=== PATIENT | male | born 1950 | race Caucasian/White ===

== ENCOUNTER 2020-06-18 09:58 | Outpatient (REF) | payer MEDICARE, SELFPAY ==
--- NOTE | ~2020-06-18 | US_ITS ---
EXAMINATION: US RETROPERITONEAL LIMITED (RENAL ONLY) CLINICAL INFORMATION: Left renal cancer. COMPARISON: Renal ultrasound 06/13/2019 TECHNIQUE: Real-time imaging of the kidneys. FINDINGS: RIGHT KIDNEY: 10.0 x 5.9 x 4.9 cm (SAG x AP x TRV). The kidney is normal in size, contour, and echogenicity. Renal cortical thickness is normal. No hydronephrosis. Right upper pole simple cyst measures 1.3 cm. Midpole simple cyst measures 1.4 cm. There is a calculus seen at the midpole measuring 0.3 cm. LEFT KIDNEY: 9.3 x 4.3 x 4.2 cm (SAG x AP x TRV). The kidney is normal in size, contour, and echogenicity. Renal cortical thickness is normal. No renal calculi or hydronephrosis. There is a mid to lower pole simple cyst measuring 1.6 cm. There are 2 additional lower pole cysts measuring 1.4 cm and 1.2 cm. Partial nephrectomy at the lower pole. No suspicious mass identified. US/US renal BI IMPRESSION: No suspicious renal mass. Partial left nephrectomy. Bilateral renal cysts. Nonobstructing 0.3 cm right renal calculus..
[2020-06-18 12:10] LABS: Prostate Specific Antigen 1.59 ng/mL (<0.05-4.0)
== END 2020-06-18 09:59 | disposition home or self-care (01) ==
LOC: HO.US 09:58
PROVIDERS: PCP Internal Medicine; Visit Provider Urology
DX: Z12.5 Encounter for screening for malignant neoplasm of prostate (principal); C64.2 Malignant neoplasm of left kidney, except renal pelvis
CPT/HCPCS: 36415; 76775; 84153

== ENCOUNTER → 2020-06-29 08:55 | Outpatient (BNVA) | payer MEDICARE, SELFPAY | PROVIDERS: PCP Internal Medicine; Visit Provider Urology | DX: Z13.89 Encounter for screening for other disorder (principal) | CPT/HCPCS: Q3014 ==

== ENCOUNTER 2022-10-03 11:06 | Outpatient (AMB) | payer MEDICARE, SELFPAY ==
--- NOTE | 2022-10-03 11:12 | A.OFFVIS_ITS ---
Intake Intake Visit Reasons: Frequency/Urgency Intake Note: * NEW Patient presents today to established treatment for Frequency/Urgency * Meds- Tamsulosin * Allergies to Antibiotic- None * Blood Thinner- None * PVR- 67ml Cook Roast Required: No Accompanied by: Self / Same As Patient Allergies No Known Allergies Allergy (Verified 11/28/22 14:47) Medication List - Last Reconciled 10/03/22 by Natalia Martínez MD lisinopril 20 mg PO DAILY omeprazole 20 mg PO DAILY tadalafil 5 mg PO DAILY tamsulosin 0.4 mg PO DAILY 90 days tolterodine ER 4 mg PO DAILY tramadol 50 mg PO Q6H PRN trazodone mg PO HPI HPI Comments History of Present Illness Details Jf is a 72-year-old male who presents to the office as a new patient evaluation for LUTS of frequency and urgency. He as seen by his PCP on July 25 2022 with complaints of LUTS of frequency and urgency. He was sent for culture and was started on antibiotics. He was also prescribed Flomax 0.4 mg and Cialis 5 mg. 10/03/22-- In review of his chart he has a recent US done on 06/18/20 which is consistent with partial left nephrectomy and a right kidney 3 mm stone, no masses visualized. The patient states that urine culture reports came out negative for infection States that his urinary frequency during the day time is up to 10 times. Mentions that the urinary symptoms got worse after taking Flomax and Cialis. States night time voiding episodes improved from 2-3 times per night to once a night with the medications. Has history of partial nephrectomy in 2011 for renal cancer. The patient has surgical history of ankle fusion in right leg, knee replacement of left leg, carpal tunnel surgery in both hands and shoulders. Evaluation today-- Blood: negative, leukocytes: negative. Bladder scan PVR: 67 mL. AUA symptom score: 15. Prostate exam-- enlarged and no suspicious bladder lesion palpated. PSA results reviewed--06/18/20?1.59. I discussed that bladder wall can get thicken with age which can sometimes cause symptoms of urgency or bladder spasms. Plan: PSA blood work was ordered. Cystoscopy discussed to be scheduled. Renal US was ordered. Tolterodine 4 mg QD was ordered. Follow-up after 6 weeks. [facility] Medical History Asthma BPH w/o urinary obs/LUTS Erectile dysfunction GERD (gastroesophageal reflux disease) Hypertension Osteoarthritis Renal cancer Surgical History History of kidney surgery Family History (Updated 11/28/22 @ 14:47 by LORRAINE Hardin) Father No problems noted. Mother No problems noted. Social History (Updated 11/28/22 @ 14:47 by LORRAINE Hardin) Alcohol intake: current Alcohol intake frequency: does not drink Patient Tobacco Use Status: Never used Tobacco Questionnaire AUA Symptom Score AUA Incomplete emptying - It does not feel like I empty my bladder all the way.: 3 - About half the time Frequency - I have to go again less than two hours after I finish urinating.: 4 - More than half the time Intermittency - I stop and start again several times when I urinate.: 0 - Not at all Urgency - It is hard to wait when I have to urinate.: 3 - About half the time Weak stream - I have a weak urinary stream.: 4 - More than half the time Straining - I have to push or strain to begin urination.: 0 - Not at all Nocturia - I get up to urinate after I go to bed until the time I get up in the morning.: 1 time AUA Symptom Score: 15 Quality of life due to urinary symptoms: If you were to spend the rest of your life with your urinary condition the way it is now, how would you feel about that?: Unhappy Source: Christopher TIERNEY, Giovani GRIDER Jr, O'Shama MP, et al, and the Measurement Committee of the [place] [employer]. The [place] [employer] symptom index for benign prostatic hyperplasia. J Urol. 1992; 148: 1374-5342. Copyright 1992 [place] [employer] Review of Systems Const All systems reviewed & are unremarkable except as noted in HPI and below Reports no additional complaints Eyes Reports no additional complaints ENT Reports no additional complaints Card Denies dyspnea Resp Denies cough and Denies dyspnea GI Reports no additional complaints Musc Reports no additional complaints Skin/Breast Denies rash and Denies unusual bruising Neuro Reports no additional complaints Psych Reports no additional complaints Endo Reports no additional complaints Pérez/Lymph Reports no additional complaints Aller/Immun Reports no additional complaints Physical Exam Const General: healthy appearing, no acute distress and well developed Orientation/consciousness: patient oriented x3 HEENT Head: Yes normocephalic and Yes atraumatic Eyes Conjunctivae: conjunctivae normal Neck Neck: Yes normal visual inspection Chest Chest palpation & inspection: normal inspection of the chest Resp Effort & Inspection: normal respiratory effort Cardio Rate: regular rate GI Inspection: Yes normal to inspection Palpation (GI): Soft to palpation Other: Prostate Exam: Prostate exam-- enlarged and no suspicious bladder lesion palpated. Penis: normal penis Scrotum: scrotum normal Skin General skin exam: no rashes or lesions noted Neuro General: patient oriented x3 Extrem General: No pedal edema Psych Appearance: grossly normal Affect: normal affect Office Procedures Post Void Residual Post Residual Void Post Void Residual (PVR): [id number] Void Residual by ultrasound Results AMB Urinalysis, Automated UA Leukoctes 0 Royer/uL Last Edit by LORRAINE Hardin on 10/03/22 11:42 UA Nitrite Negative Last Edit by LORRAINE Hardin on 10/03/22 11:42 UA Urobilinogen 0.2 mg/dL Last Edit by LORRAINE Hardin on 10/03/22 11:4 2 UA Protein 100 mg/dL Last Edit by LORRAINE Hardin on 10/03/22 11:42 2+ Adeline Winters 10/03/22 11:42 UA pH 6.0 Last Edit by LORRAINE Hardin on 10/03/22 11:42 UA Blood 0 Duncan/uL Last Edit by LORRAINE Hardin on 10/03/22 11:42 UA Specific [place] 1.025 Last Edit by LORRAINE Hardin on 10/03/22 11: 42 UA Ketone Negative Last Edit by LORRAINE Hardin on 10/03/22 11:42 UA Bilirubin 1 mg/dL Last Edit by LORRAINE Hardin on 10/03/22 11:42 1+ Adeline Winters 10/03/22 11:42 UA Glucose 0 mg/dL Last Edit by LORRAINE Hardin on 10/03/22 11:42 Results Reviewed Results Reviewed: Laboratory Last Values Urine pH (Auto) 6.0 10/03/22 11:12 Specific [place] (Auto) 1.025 10/03/22 11:12 Urine Protein (Auto) 100 mg/dL 10/03/22 11:12 Glucose (UA)(Auto) 0 mg/dL 10/03/22 11:12 Urine Ketones (Auto) Negative 10/03/22 11:12 Urine Blood (Auto) 0 Duncan/uL 10/03/22 11:12 Urine Nitrite (Auto) Negative 10/03/22 11:12 Urine Bilirubin (Auto) 1 mg/dL 10/03/22 11:12 Urine Urobilinogen (Auto) 0.2 mg/dL 10/03/22 11:12 Leukocyte Esterase (Auto) 0 Royer/uL 10/03/22 11:12 Date of Service: 06/18/20 EXAMINATION: US RETROPERITONEAL LIMITED (RENAL ONLY) CLINICAL INFORMATION: Left renal cancer. COMPARISON: Renal ultrasound 06/13/2019 TECHNIQUE: Real-time imaging of the kidneys.? FINDINGS: RIGHT KIDNEY: 10.0 x 5.9 x 4.9 cm (SAG x AP x TRV). The kidney is normal in size, contour, and echogenicity. Renal cortical thickness is normal. No hydronephrosis. Right upper pole simple cyst measures 1.3 cm. Midpole simple cyst measures 1.4 cm. There is a calculus seen at the midpole measuring 0.3 cm. LEFT KIDNEY: 9.3 x 4.3 x 4.2 cm (SAG x AP x TRV). The kidney is normal in size, contour, and echogenicity. Renal cortical thickness is normal. No renal calculi or hydronephrosis. There is a mid to lower pole simple cyst measuring 1.6 cm. There are 2 additional lower pole cysts measuring 1.4 cm and 1.2 cm. Partial nephrectomy at the lower pole. No suspicious mass identified. IMPRESSION: No suspicious renal mass. Partial left nephrectomy. Bilateral renal cysts. Nonobstructing 0.3 cm right renal calculus.. Assessment & Plan Assessment & Plan (1) Erectile dysfunction: Code(s): N52.9 - Male erectile dysfunction, unspecified (2) History of kidney cancer: Code(s): Z85.528 - Personal history of other malignant neoplasm of kidney (3) BPH (benign prostatic hyperplasia): Code(s): N40.0 - Benign prostatic hyperplasia without lower urinary tract symptoms (4) Urine frequency: Code(s): R35.0 - Frequency of micturition Plan PSA blood work was ordered. Cystoscopy discussed to be scheduled. Renal US was ordered. Tolterodine 4 mg QD was ordered. Follow-up after 6 weeks. Orders: Orders AMB Urinalysis Automated 10/03/22 Z13.9 - Encounter for screening, unspecified AMB Post Void Residual by ultrasound 10/03/22 N39.8 - Other specified disorders of urinary system Medications: New 2 tolterodine ER 4 mg PO DAILY 30 caps 1RF Patient Instructions: The patient had an opportunity to ask questions regarding treatment plan. All questions were answered. Imaging, Laboratory studies and physical exam results were discussed and reviewed in detail. No major barriers to understanding were identified. The patient expressed understanding and agreement with the above treatment plan. The patient is aware they should contact our office by phone for worsening of their current condition or the appearance of new symptoms. Compliance is encouraged with any medications and followup testing that is ordered. It is a privilege to be allowed the opportunity to participate in the urologic care of your patient. If you have any questions or concerns regarding treatment for the above conditions please do not hesitate to contact me. The office telephone contact is [phone]. This note is constructed in part using voice recognition software. While every effort has been made to ensure accuracy station engineer chief errors may have been included. Yours sincerely, Natalia Martínez MD Quality Reporting (2019) Benign Prostatic Hyperplasia ([facility] 771) AUA symptom score: 15 Quality of life due to urinary symptoms: If you were to spend the rest of your life with your urinary condition the way it is now, how would you feel about that?: Unhappy Coding Level of Care Code New Pt Level 3 (48041) Diagnoses Erectile dysfunction N52.9 History of kidney cancer Z85.528 BPH (benign prostatic hyperplasia) N40.0 Urine frequency R35.0 CPT Codes Post Residual Void - PVR CPT Code: 65051-Xtww Void Residual by ultrasound ([id number])
== END 2022-10-03 11:58 | disposition home or self-care (01) ==
LOC: HO.HUSH 11:06
PROVIDERS: PCP Internal Medicine; Visit Provider Urology
DX: N52.9 Male erectile dysfunction, unspecified (principal); Z85.528 Personal history of other malignant neoplasm of kidney; N40.0 Benign prostatic hyperplasia without lower urinary tract symptoms; R35.0 Frequency of micturition
CPT/HCPCS: 99203

== ENCOUNTER → 2022-10-03 11:06 | Outpatient (BNVA) | payer MEDICARE, SELFPAY | PROVIDERS: PCP Internal Medicine; Visit Provider Urology | DX: N40.1 Benign prostatic hyperplasia with lower urinary tract symptoms (principal); N52.9 Male erectile dysfunction, unspecified; R35.0 Frequency of micturition; Z85.528 Personal history of other malignant neoplasm of kidney | CPT/HCPCS: 51798; 99202 ==

== ENCOUNTER 2022-11-28 14:42 | Outpatient (AMB) | payer MEDICARE, SELFPAY ==
--- NOTE | 2022-11-28 12:05 | A.OFFVIS_ITS ---
Intake Intake Visit Reasons: New patient/Possible cysto Intake Note: Patient presents today for a CYSTOSCOPY Procedure: Meds: Tamsulosin, Tadalafil & Tolterodine Allergies to Antibiotic: No Known Allergies Blood Thinner: None Urinalysis test clear for Cysto? Disposible Uro-G Cystoscope Cannula: Lot: [id number] Exp: 08/15/2024 Data Deliverables Manager Required: No Accompanied by: Self / Same As Patient Allergies No Known Allergies Allergy (Verified 11/28/22 14:47) HPI HPI Comments 2 History of Present Illness Details Jf is a 72-year-old male who presents today to the office for FU. 11/28/2022? He was last seen by me on 10/03/2022 for lower urinary tract symptoms of urgency and frequency. He was prescribed Tolterodine 4 mg QD during that visit. Cystoscopy was discussed to be scheduled at that time. PSA blood work and renal US was ordered at that time, and advised to follow up after 6 weeks. He states that when he is on Tolterodine 4 mg QD, he had a harder time emptying his bladder. Renal US and PSA not completed. He states he is actually voiding better now. UA today is WNL. Will hold on Cystoscopy procedure. Review of charts: Last visit: 10/03/2022-- He as seen by his PCP on July 25 2022 with complaints of LUTS of frequency and urgency. He was sent for culture and was started on antibiotics. He was also prescribed Flomax 0.4 mg and Cialis 5 mg. In review of his chart he has a recent US done on 06/18/20 which is consistent with partial left nephrectomy and a right kidney 3 mm stone, no masses visualized. The patient states that urine culture reports came out negative for infection States that his urinary frequency during the day time is up to 10 times. Mentions that the urinary symptoms got worse after taking Flomax and Cialis.? States night time voiding episodes improved from 2-3 times per night to once a night with the medications. Has history of partial nephrectomy in 2011 for renal cancer. The patient has surgical history of ankle fusion in right leg, knee replacement of left leg, carpal tunnel surgery in both hands and shoulders. Evaluation today-- Blood: negative, leukocytes: negative. Bladder scan PVR: 67 mL. AUA symptom score: 15. Prostate exam-- enlarged and no suspicious bladder lesion palpated. PSA results reviewed--06/18/20?1.59. I discussed that bladder wall can get thicken with age which can sometimes cause symptoms of urgency or bladder spasms. Plan: Tolterodine 4 mg QD was ordered. PSA. Renal sono. Cystoscopy discussed to be scheduled. Follow-up after 6 weeks.? 11/28/2022: Evaluation today?UA? leukocy demetrio: negative; blood: negative. 11/28/2022: Plan-- Continue taking tamsulosin 0.4 mg at night. Will trial Cialis 5 mg during the day. US of the kidney was ordered. Follow up tele-health to discuss the US of the kidney and PSA results. [facility] Medical History Asthma BPH w/o urinary obs/LUTS Erectile dysfunction GERD (gastroesophageal reflux disease) Hypertension Osteoarthritis Renal cancer Surgical History History of kidney surgery Family History Father No problems noted. Mother No problems noted. Social History Alcohol intake: current Alcohol intake frequency: does not drink Patient Tobacco Use Status: Never used Tobacco Review of Systems Const All systems reviewed & are unremarkable except as noted in HPI and below Reports no additional complaints Eyes Reports no additional complaints ENT Reports no additional complaints Card Denies dyspnea Resp Denies cough and Denies dyspnea GI Reports no additional complaints Musc Reports no additional complaints Skin/Breast Denies rash and Denies unusual bruising Neuro Reports no additional complaints Psych Reports no additional complaints Endo Reports no additional complaints Pérez/Lymph Reports no additional complaints Aller/Immun Reports no additional complaints Results AMB Urinalysis, Automated UA Leukoctes 0 Royer/uL Last Edit by Adeline Winters [facility] on 11/28/22 14:59 UA Nitrite Negative Last Edit by Adeline Winters [facility] on 11/28/22 14:59 UA Urobilinogen 0.2 mg/dL Last Edit by Adeline Winters [facility] on 11/28/22 14:5 9 UA Protein 30 mg/dL Last Edit by Adeline Winters [facility] on 11/28/22 14:59 +1 Adeline Winters 11/28/22 14:59 UA pH 6.0 Last Edit by Adeline Winters [facility] on 11/28/22 14:59 UA Blood 0 Duncan/uL Last Edit by Adeline Winters [facility] on 11/28/22 14:59 UA Specific [place] 1.015 Last Edit by Adeline Winters, [facility] on 11/28/22 14: 59 UA Ketone Negative Last Edit by Adeline Winters [facility] on 11/28/22 14:59 UA Bilirubin 0 mg/dL Last Edit by Adeline Winters [facility] on 11/28/22 14:59 UA Glucose 0 mg/dL Last Edit by Adeline Winters [facility] on 11/28/22 14:59 Results Reviewed Results Reviewed: Laboratory Last Values Urine pH (Auto) 6.0 11/28/22 14:57 Specific [place] (Auto) 1.015 11/28/22 14:57 Urine Protein (Auto) 30 mg/dL 11/28/22 14:57 Glucose (UA)(Auto) 0 mg/dL 11/28/22 14:57 Urine Ketones (Auto) Negative 11/28/22 14:57 Urine Blood (Auto) 0 Duncan/uL 11/28/22 14:57 Urine Nitrite (Auto) Negative 11/28/22 14:57 Urine Bilirubin (Auto) 0 mg/dL 11/28/22 14:57 Urine Urobilinogen (Auto) 0.2 mg/dL 11/28/22 14:57 Leukocyte Esterase (Auto) 0 Royer/uL 11/28/22 14:57 Assessment & Plan Assessment & Plan (1) History of kidney cancer: Code(s): Z85.528 - Personal history of other malignant neoplasm of kidney Plan: Continue taking tamsulosin 0.4 mg at night. Will trial Cialis 5 mg during the day. US of the kidney was ordered. Follow up tele-health to discuss the US of the kidney and PSA results. (2) BPH (benign prostatic hyperplasia): Code(s): N40.0 - Benign prostatic hyperplasia without lower urinary tract symptoms (3) Urine frequency: Code(s): R35.0 - Frequency of micturition Orders: Orders AMB Urinalysis Automated 11/28/22 Z13.9 - Encounter for screening, unspecified US retroperitoneal comp 11/28/22 Z85.528 - Personal history of other malignant neoplasm of kidney, R35.0 - Frequency of micturition PSA,Total (Free>4and<10) 11/28/22 N40.0 - Benign prostatic hyperplasia without lower urinary tract symptoms Patient Instructions: The patient had an opportunity to ask questions regarding treatment plan. All questions were answered. Imaging, Laboratory studies and physical exam results were discussed and reviewed in detail. No major barriers to understanding were identified. The patient expressed understanding and agreement with the above treatment plan.? ? ? The patient is aware they should contact our office by phone for worsening of their current condition or the appearance of new symptoms. Compliance is encouraged with any medications and followup testing that is ordered.? ? ? It is a privilege to be allowed the opportunity to participate in the urologic care of your patient. If you have any questions or concerns regarding treatment for the above conditions please do not hesitate to contact me. The office telephone contact is [phone].? ? ? This note is constructed in part using voice recognition software. While every effort has been made to ensure accuracy cia agent errors may have been included.? ? ? Yours sincerely,? ? ? Natalia Martínez MD? ? Coding Level of Care Code Est Pt Level 3 (61197) Diagnoses History of kidney cancer Z85.528 BPH (benign prostatic hyperplasia) N40.0 Urine frequency R35.0
== END 2022-11-28 15:56 | disposition home or self-care (01) ==
PROVIDERS: PCP Nurse Practitioner Primary Care; Visit Provider Urology
DX: Z85.528 Personal history of other malignant neoplasm of kidney (principal); N40.0 Benign prostatic hyperplasia without lower urinary tract symptoms; R35.0 Frequency of micturition
CPT/HCPCS: 99213

== ENCOUNTER → 2022-11-28 14:42 | Outpatient (BNVA) | payer MEDICARE, SELFPAY | PROVIDERS: Visit Provider Urology | DX: N40.0 Benign prostatic hyperplasia without lower urinary tract symptoms (principal); R35.0 Frequency of micturition; Z85.528 Personal history of other malignant neoplasm of kidney | CPT/HCPCS: 81003; 99212 ==

== ENCOUNTER 2022-12-30 11:53 | Outpatient (REF) | payer MEDICARE, SELFPAY ==
--- NOTE | ~2022-12-30 | US_ITS ---
EXAMINATION: US RETROPERITONEAL COMPLETE (RENAL) CLINICAL INFORMATION: Personal history of other malignant neoplasm of kidney. Please measure the prostate. COMPARISON: Ultrasound retroperitoneal limited (renal only) 06/18/2020 and 06/13/2019. CT abdomen and pelvis without and with contrast 04/19/2018. TECHNIQUE: Real-time imaging of the kidneys and bladder. Limited visualization due to bowel gas. FINDINGS: RIGHT KIDNEY: 10.0 x 5.3 x 5.3 cm (SAG x AP x TRV). Multiple renal cysts, largest lower pole 1.6 x 1.2 x 1.1 cm and demonstrates benign features and there is no indication for follow up imaging. No follow up imaging is recommended. No hydronephrosis. No renal calculi. Limited visualization. LEFT KIDNEY: 8.5 x 4.8 x 4.5 cm (SAG x AP x TRV). Multiple renal cysts, largest [id number] pole 1.4 x 1.5 x 1.2 cm demonstrates benign features and there is no indication for follow up imaging. No follow up imaging is recommended. Status post partial left nephrectomy. No renal calculi or hydronephrosis. Limited visualization. BLADDER: Partially distended, limiting evaluation. Bilateral ureteral jets are demonstrated. Prevoid bladder volume is 91 mL. Postvoid bladder volume is 31 mL. Bladder wall appears trabeculated with borderline thickening. The prostate volume is 18 mL. US/US retroperitoneal comp IMPRESSION: 1. Diffuse, nodular trabeculation and thickening of the bladder wall. Urology consultation and possible direct visualization with cystoscopy recommended. Postvoid bladder volume of 31 mL. 2. Status post partial left nephrectomy. No hydronephrosis. No renal calculi.
== END 2022-12-30 11:54 | disposition home or self-care (01) ==
LOC: HO.US 11:53
PROVIDERS: Visit Provider Urology
DX: R35.0 Frequency of micturition (principal); Z85.528 Personal history of other malignant neoplasm of kidney
CPT/HCPCS: 76770

== ENCOUNTER 2023-01-06 09:23 | Outpatient (REF) | payer MEDICARE, SELFPAY ==
[2023-01-06 11:21] LABS: PSA,Total (Free>4and<10) 1.59 ng/mL (0.00-4.00)
== END 2023-01-06 09:24 | disposition home or self-care (01) ==
LOC: HO.LAB 09:23
PROVIDERS: PCP Nurse Practitioner Primary Care; Visit Provider Urology
DX: Z12.5 Encounter for screening for malignant neoplasm of prostate (principal); N40.0 Benign prostatic hyperplasia without lower urinary tract symptoms
CPT/HCPCS: 36415; 84153

== ENCOUNTER 2023-01-08 10:02 | Outpatient (AMB) | payer MEDICARE, SELFPAY ==
--- NOTE | 2023-01-08 10:04 | MHC.OFFVIS ---
Intake Intake Visit Reasons: 6 week psa/ us Intake Note: Patient presents today for a follow-up on PSA and US Results: US Completed on 12/30/2022 Meds- Tadalafil & Tamsulosin Allergies to Antibiotic- No Known Allergies Blood Thinner- None PSA- 1.59 ng/mL, 01/06/2023 PVR- 127 mL Allergies No Known Allergies Allergy (Verified 11/28/22 14:47) Medication List - Last Reconciled 01/08/23 by Natalia Martínez MD duloxetine 60 mg PO DAILY gabapentin 300 mg PO TID lisinopril 20 mg PO DAILY mirabegron ER (Myrbetriq) 25 mg PO DAILY omeprazole 20 mg PO DAILY tadalafil 5 mg PO DAILY tamsulosin 0.4 mg PO DAILY 90 days trazodone 50 mg PO HPI HPI Comments History of Present Illness Details Jf is a 72-year-old male who presents today to the office for a follow-up. 01/08/2023? He is followed today for PSA. He was last seen by me on 11/28/2022. He was previously prescribed Tolterodine 4 mg QD but stated that when he is on Tolterodine 4 mg QD, he had a harder time emptying his bladder. The patient was advised to continue taking tamsulosin 0.4 mg at night, and started on Cialis 5 mg. US of the kidney was ordered. The Patient states that he still has urinary frequency and urgency at this time. He states that he urinates 15 times a day. I reviewed the retroperitoneum US results from 12/30/2022 revealed diffuse, nodular trabeculation and thickening of the bladder wall. Postvoid bladder volume of 31 mL. Status post partial left nephrectomy. No hydronephrosis. No renal calculi. 01/06/2023--PSA- 1.59 ng/mL, PVR- 127 mL 01/08/2023: Plan: Continue tamsulosin 0.4 mg daily at night, and Cialis 5mg during the day. Currently off Tolteridine Myrbetriq 25 mg was ordered. Follow-up in 4 months. [facility] Medical History Asthma BPH w/o urinary obs/LUTS Erectile dysfunction GERD (gastroesophageal reflux disease) Hypertension Osteoarthritis Renal cancer Surgical History History of kidney surgery Family History Father No problems noted. Mother No problems noted. Social History Alcohol intake: current Alcohol intake frequency: does not drink Patient Tobacco Use Status: Never used Tobacco Review of Systems Const All systems reviewed & are unremarkable except as noted in HPI and below Reports no additional complaints Eyes Reports no additional complaints ENT Reports no additional complaints Card Denies dyspnea Resp Denies cough and Denies dyspnea GI Reports no additional complaints Musc Reports no additional complaints Skin/Breast Denies rash and Denies unusual bruising Neuro Reports no additional complaints Psych Reports no additional complaints Endo Reports no additional complaints Pérez/Lymph Reports no additional complaints Aller/Immun Reports no additional complaints Office Procedures Post Void Residual Post Residual Void Post Void Residual (PVR): 127 [id number] Void Residual by ultrasound Results AMB Urinalysis, Automated UA Leukoctes 0 Royer/uL Last Edit by Adeline Winters [facility] on 01/08/23 10:24 UA Nitrite Negative Last Edit by Adeline Winters Dona on 01/08/23 10:24 UA Urobilinogen 0.2 mg/dL Last Edit by Adeline Winters [facility] on 01/08/23 10:24 UA Protein 30 mg/dL Last Edit by Adeline Winters [facility] on 01/08/23 10:24 1+ Adeline Winters 01/08/23 10:24 UA pH 5.5 Last Edit by Adeline Winters [facility] on 01/08/23 10:24 UA Blood 0 Duncan/uL Last Edit by Adeline Winters Dona on 01/08/23 10:24 UA Specific [place] 1.020 Last Edit by Adeline Winters [facility] on 01/08/23 10:24 UA Ketone Negative Last Edit by Adeline Winters [facility] on 01/08/23 10:24 UA Bilirubin 0 mg/dL Last Edit by Adeline Winters [facility] on 01/08/23 10:24 UA Glucose 0 mg/dL Last Edit by LORRAINE Hardin on 01/08/23 10:24 Results Reviewed Results Reviewed: Laboratory Last Values Urine pH (Auto) 5.5 01/08/23 10:18 Specific [place] (Auto) 1.020 01/08/23 10:18 Urine Protein (Auto) 30 mg/dL 01/08/23 10:18 Glucose (UA)(Auto) 0 mg/dL 01/08/23 10:18 Urine Ketones (Auto) Negative 01/08/23 10:18 Urine Blood (Auto) 0 Duncan/uL 01/08/23 10:18 Urine Nitrite (Auto) Negative 01/08/23 10:18 Urine Bilirubin (Auto) 0 mg/dL 01/08/23 10:18 Urine Urobilinogen (Auto) 0.2 mg/dL 01/08/23 10:18 Leukocyte Esterase (Auto) 0 Royer/uL 01/08/23 10:18 Date of Service: 12/30/22 EXAMINATION:? US RETROPERITONEAL COMPLETE (RENAL) CLINICAL INFORMATION: Personal history of other malignant neoplasm of kidney. Please measure the prostate. COMPARISON:? Ultrasound retroperitoneal limited (renal only) 06/18/2020 and 06/13/2019. CT abdomen and pelvis without and with contrast 04/19/2018. FINDINGS: RIGHT KIDNEY: 10.0 x 5.3 x 5.3 cm (SAG x AP x TRV). Multiple renal cysts, largest lower pole 1.6 x 1.2 x 1.1 cm and demonstrates benign features and there is no indication for follow up imaging. No follow up imaging is recommended. No hydronephrosis. No renal calculi. Limited visualization. LEFT KIDNEY: 8.5 x 4.8 x 4.5 cm (SAG x AP x TRV). Multiple renal cysts, largest obk-as-fimnu pole 1.4 x 1.5 x 1.2 cm demonstrates benign features and there is no indication for follow up imaging. No follow up imaging is recommended. Status post partial left nephrectomy. No renal calculi or hydronephrosis. Limited visualization. BLADDER: Partially distended, limiting evaluation. Bilateral ureteral jets are demonstrated. Prevoid bladder volume is 91 mL. Postvoid bladder volume is 31 mL.? Bladder wall appears trabeculated with borderline thickening. The prostate volume is 18 mL. IMPRESSION:? 1. Diffuse, nodular trabeculation and thickening of the bladder wall. Urology consultation and possible direct visualization with cystoscopy recommended. Postvoid bladder volume of 31 mL. 2. Status post partial left nephrectomy. No hydronephrosis. No renal calculi. Assessment & Plan Assessment & Plan (1) History of kidney cancer: Code(s): Z85.528 - Personal history of other malignant neoplasm of kidney (2) BPH (benign prostatic hyperplasia): Code(s): N40.0 - Benign prostatic hyperplasia without lower urinary tract symptoms (3) Urine frequency: Code(s): R35.0 - Frequency of micturition (4) Bladder wall thickening: Code(s): N32.89 - Other specified disorders of bladder Plan Continue tamsulosin 0.4 mg daily at night, and Cialis 5mg during the day. Myrbetriq 25 mg was ordered. Follow-up in 4 months. Orders: Orders AMB Urinalysis Automated 01/08/23 Z13.9 - Encounter for screening, unspecified AMB Post Void Residual by ultrasound 01/08/23 N39.8 - Other specified disorders of urinary system Medications: New mirabegron ER (Myrbetriq) 25 mg PO DAILY 90 tabs 0RF Patient Instructions: The patient had an opportunity to ask questions regarding treatment plan. All questions were answered. Imaging, Laboratory studies and physical exam results were discussed and reviewed in detail. No major barriers to understanding were identified. The patient expressed understanding and agreement with the above treatment plan.? ? ? The patient is aware they should contact our office by phone for worsening of their current condition or the appearance of new symptoms. Compliance is encouraged with any medications and followup testing that is ordered.? ? ? It is a privilege to be allowed the opportunity to participate in the urologic care of your patient. If you have any questions or concerns regarding treatment for the above conditions please do not hesitate to contact me. The office telephone contact is [phone].? ? ? This note is constructed in part using voice recognition software. While every effort has been made to ensure accuracy cube machine tender errors may have been included.? ? ? Yours sincerely,? ? ? Natalia Martínez MD? Coding Level of Care Code Est Pt Level 4 (08106) Diagnoses History of kidney cancer Z85.528 BPH (benign prostatic hyperplasia) N40.0 Urine frequency R35.0 Bladder wall thickening N32.89 CPT Codes Post Residual Void - PVR CPT Code: 86265-Gisv Void Residual by ultrasound ([id number])
== END 2023-01-08 10:36 | disposition home or self-care (01) ==
PROVIDERS: PCP Nurse Practitioner Primary Care; Visit Provider Urology
DX: Z85.528 Personal history of other malignant neoplasm of kidney (principal); N40.0 Benign prostatic hyperplasia without lower urinary tract symptoms; R35.0 Frequency of micturition; N32.89 Other specified disorders of bladder
CPT/HCPCS: 99214

== ENCOUNTER → 2023-01-08 10:02 | Outpatient (BNVA) | payer MEDICARE, SELFPAY | PROVIDERS: Visit Provider Urology | DX: N40.1 Benign prostatic hyperplasia with lower urinary tract symptoms (principal); R35.0 Frequency of micturition; N32.89 Other specified disorders of bladder; Z85.528 Personal history of other malignant neoplasm of kidney; Z79.899 Other long term (current) drug therapy | CPT/HCPCS: 51798; 81003; 99212 ==